=== PATIENT | male | born 1965 | race Caucasian/White ===

== ENCOUNTER 2018-10-15 11:28 | Inpatient (IN) ==
[2018-10-15 12:32] LABS: Baso % (Auto) 0.1 % (0.0-2.0); Eos # (Auto) 0.1 th/mm3 (0.0-0.4); Eos % (Auto) 1.7 % (0.0-4.0); Hematocrit 46.8 % (39.0-51.0); Hemoglobin 16.2 gm/dL (13.0-17.0); Lymph # (Auto) 0.9 th/mm3 (1.0-4.8); Lymph % (Auto) 10.6 % (9.0-44.0); Mean Corpuscular HGB Conc 34.5 % (32.0-36.0); Mean Corpuscular Hemoglobin 31.1 pg (27.0-34.0); Mean Corpuscular Volume 90.2 fL (80.0-100.0); Mean Platelet Volume 7.6 fL (7.0-11.0); Mono % (Auto) 11.8 % (0.0-8.0); Neut # (Auto) 6.4 th/mm3 (1.8-7.7); Neut % (Auto) 75.8 % (16.0-70.0); Platelet Count 188 th/mm3 (150-450); Red Blood Count 5.19 mil/mm3 (4.50-5.90); Red Cell Distribution Width 12.9 % (11.6-17.2); White Blood Count 8.4 th/mm3 (4.0-11.0)
[2018-10-15 12:51] LABS: Albumin 3.5 g/dL (3.4-5.0); Anion Gap 5 meq/L (5-15); Aspartate Aminotransferase 34 U/L (15-37); Blood Urea Nitrogen 11 mg/dL (7-18); Calcium 8.9 mg/dL (8.5-10.1); Chloride 102 meq/L (98-107); Glomerular Filtration Rate 66 mL/min (>89); Glucose,Random 93 mg/dL (74-106); Potassium 4.2 meq/L (3.5-5.1); Sodium 139 meq/L (136-145)
--- NOTE | 2018-10-15 12:53 | XR ---
EXAM DATE: 10/15/2018 12:32 PM EST AGE/SEX: 53 years / Male INDICATIONS: Chest pain. CLINICAL DATA: This is the patient's initial encounter. Patient reports that signs and symptoms have been present for 1 day and indicates a pain score of 4/10. MEDICAL/SURGICAL HISTORY: None. None. COMPARISON: No prior exams available for comparison. FINDINGS: There are minimal atelectatic changes at the left lung base. The lungs are otherwise clear. The heart is normal in size. The bony structures are intact. CONCLUSION: Minimal atelectatic change at the left lung base. Electronically signed by: Jona Phan MD Board Certified Radiologist 10/15/2018 12:51 PM EST
[2018-10-15 12:55] LABS: Alanine Aminotransferase 61 U/L (12-78); Alkaline Phosphatase 110 U/L (45-117); Total Protein 7.4 g/dL (6.4-8.2)
--- NOTE | 2018-10-15 13:13 | US ---
EXAM DATE: 10/15/2018 1:02 PM EST AGE/SEX: 53 years / Male INDICATIONS: Chest pain, prior DVT. CLINICAL DATA: This is the patient's initial encounter. Patient reports that signs and symptoms have been present for 1 day and indicates a pain score of 0/10. MEDICAL/SURGICAL HISTORY: Deep venous thrombosis. . Hernia repair. Vasectomy. COMPARISON: No prior exams available for comparison. TECHNIQUE: Venous ultrasound of both lower extremities was performed from the inguinal ligament to t he proximal calf. Real-time, color Doppler and spectral tracing, compression and augmentation techni ques were used. FINDINGS: Right Leg: There is incomplete compression of the popliteal and peroneal veins along with abnormal i ntraluminal echoes within these vessels. These vessels are expanded characteristic of acute venous th rombosis. The remaining veins of the right lower extremity are patent. Left Leg: There is incomplete compression of the femoral vein, popliteal vein, and calf veins. These vessels also contain abnormal intraluminal echoes with lack of normal blood flow characteristic of a cute occlusive venous thrombosis. The thrombosed femoral vein may be a duplicated vein. Other: None. CONCLUSION: 1. There is acute-appearing venous thrombosis within the right lower extremity within the popliteal and peroneal veins. 2. There is occlusive thrombus within the left lower extremity within the femoral vein, popliteal ve in, and calf veins. Electronically signed by: Edwar Hatch MD Board Certified Radiologist 10/15/2018 1:12 PM EST
--- NOTE | 2018-10-15 13:31 | CT ---
EXAM DATE: 10/15/2018 1:23 PM EST AGE/SEX: 53 years / Male INDICATIONS: Pain left shoulder on inspiration history of DVT recent long drive CLINICAL DATA: This is the patient's initial encounter. Patient reports that signs and symptoms have been present for 1 day and indicates a pain score of 3/10. MEDICAL/SURGICAL HISTORY: Deep venous thrombosis. None. RADIATION DOSE: 10.61 CTDI (mGy) COMPARISON: No prior exams available for comparison. TECHNIQUE: Volumetric scanning was performed using a multi-row detector CT scanner during bolus infu maame of 60 ml Omnipaque 350 (iohexol) nonionic water-soluble contrast as a single exam dose. The teodoro a was post processed with a variety of visualization algorithms including full volume maximum intensi ty projection and sliding thin slab reformation. Using automated exposure control and adjustment of t he mA and/or kV according to patient size, radiation dose was kept as low as reasonably achievable to obtain optimal diagnostic quality images. DICOM format image data is available electronically for r eview and comparison. FINDINGS: Pulmonary Arteries: Filling defects are identified in segmental branches of the left lower lobe pulm onary artery. Additional subsegmental filling defects are seen in the right upper lobe. Lung: Airspace disease is developing in the left lower lobe. Lungs are otherwise clear. Effusion: Small left pleural effusion is noted. Mediastinum: No evidence of mediastinal or hilar adenopathy. Other: The axilla is unremarkable. CONCLUSION: 1. Subsegmental and segmental pulmonary arterial filling defects characteristic of pulmonary emboli as described. 2. Left lower lobe infiltrate 3. Small left pleural effusion 4. No other significant abnormality. Electronically signed by: Edgar Capps MD Board Certified Radiologist 10/15/2018 1:30 PM EST
[2018-10-15] MEDS ORDERED: Heparin 10,000 UNITS/10 ML Vial (for IV use) IV.PUSH STA (13:41)
[2018-10-15 13:53] LABS: Activated Partial Thrombo Time 26.6 sec (23.4-31.7); INR 0.9 Ratio; Prothrombin Time 9.4 sec (9.8-11.6)
[2018-10-15] MEDS ORDERED: Bisacodyl 10 MG Supp RECTAL PRN (14:16)
[2018-10-15] MEDS ORDERED: Acetaminophen 325 MG Tablet PO PRN ×2 (14:16→15:00)
--- NOTE | 2018-10-15 14:43 | P.HPIM ---
History of Present Illness Primary Care Physician: No Primary Care Physician History of Present Illness: 53-year-old white male with a previous history of DVT 18 months ago was taken off Xarelto 7-month ago and may traveled to [place] during the holidays from [place] and stated over the past 2-3 days has had increasing left lower leg discomfort. Overnight, patient developed left-sided chest pain along with shortness of breath worse when he is laying down radiating towards his back. The pain was so bad that it kept him up all night long and therefore came in for evaluation. He reports he has been more inactive over the past few months as he is currently unemployed. He reports dry cough associate with the chest pain. He denies a cardiac history. He denies any palpitations or any worsening lower extremity edema. Inpatient Certification Inpatient Certification: I certify that the inpatient services were ordered in accordance with Medicare regulations governing the order. This includes certification that hospital inpatient services are reasonable and necessary and in the case of services not specified as inpatient-only under 42 CFR 419.22(n), that they are appropriately provided as inpatient services in accordance to with the 2-midnight benchmark under 43 CFR 412.3(e) Estimated Total Length of Stay (Days): 2 Plans for Post Hospital Care: Home Review of Systems Constitutional: Reports as per HPI, Denies chills, Denies fatigue, Denies fever( s) and Denies headache(s) Eyes: Denies blurry vision, Denies change in vision and Denies eye pain Ears, Nose, Mouth, and Throat: Denies abnormal hearing, Denies headache(s), Denies mouth pain, Denies nasal congestion, Denies neck pain and Denies sore throat Cardiovascular: Reports chest pain, Reports chest pain at rest, Reports chest pain with activity, Denies rapid heart rate, Denies pedal edema, Denies palpitations, Reports dyspnea, Reports dyspnea on exertion, Denies orthopnea and Reports paroxysmal nocturnal dyspnea Respiratory: Denies chest congestion, Reports cough, Denies hemoptysis, Reports dyspnea, Reports dyspnea on exertion and Denies wheezing Gastrointestinal: Denies abdominal pain, Denies constipation, Denies loose stools, Denies nausea and Denies vomiting Musculoskeletal: Reports back pain, Denies myalgias, Denies arthralgias, Denies neck pain and Denies numbness Skin/Breast: Denies new lesions and Denies rash Neurologic: Denies abnormal hearing, Denies headache(s), Denies focal weakness, Denies memory loss and Denies numbness Psychiatric: Denies anxiety, Denies depression and Denies memory loss Endocrine: Denies cold intolerance, Denies heat intolerance and Denies palpitations Hematologic/Lymphatic: Denies easy bleeding and Denies easy bruising PMFSH History History Provided By: Patient Medical History Medical History DVT (deep venous thrombosis) (Chronic) Surgical History Surgical History H/O hernia repair (Chronic) H/O vasectomy (Chronic) Family History Family History Mother Lung cancer Father Metastatic adenocarcinoma Social History Social History Substance History: No History of Abuse Smoking Status: Never smoker How Often Do You Have a Drink Containing Alcohol: 2 to 3 times a week Recent Travel in [facility] within the Last 8 Weeks: No Recent Out of Country Travel within the Last 8 Weeks: No Immunization History Tetanus Immunization: >5 Years Medications and Allergies Allergies Allergy/AdvReac Type Severity Reaction Status Date / Time No Known Allergies Allergy Verified 10/15/18 11:50 Home Medications Medication Instructions Recorded Confirmed Type aspirin 81 mg PO DAILY 10/15/18 10/15/18 History Active Medications: Active Medications Acetaminophen (Tylenol) 650 mg PO Q4H PRN PRN Reason: Temp > 100.4 Al Hydroxide/Mg Hydroxide (Milk Of Magnesia Liq) 30 ml PO Q12H PRN PRN Reason: Mild Constipation Bisacodyl (Dulcolax Supp) 10 mg RECTAL DAILY PRN PRN Reason: SEVERE CONSITIPATION Heparin Sodium/Dextrose (Heparin/D5w 25,000 U/250 Ml) 25,000 unit in 250 mls @ 0 mls/hr IV.CONT TITRATE PRN; Protocol PRN Reason: Per Protocol Lactulose (Lactulose Liq) 30 ml PO DAILY PRN PRN Reason: SEVERE CONSITIPATION Ondansetron HCl (Zofran Inj) 4 mg IV.PUSH Q6H PRN PRN Reason: NAUSEA OR VOMITING Sennosides (Senokot) 17.2 mg PO Q12H PRN PRN Reason: Moderate Constipation Sodium Chloride (Ns Flush) 2 ml IV.FLUSH BID SWAPNIL Sodium Chloride (Ns Flush) 2 ml IV.FLUSH UNSCH PRN PRN Reason: FLUSH AFTER USING IV ACCESS Physical Exam Vital signs: Last Vital Signs Temp 98.6 F 10/15/18 11:47 Pulse 85 10/15/18 12:30 Resp 18 10/15/18 12:30 BP 123/76 10/15/18 12:30 Pulse Ox 98 10/15/18 12:30 Intake & Output 10/13/18 10/14/18 10/15/18 10/16/18 06:59 06:59 06:59 06:59 Weight 92.986 kg Narrative: GENERAL: Well-nourished well-developed white male no acute distress SKIN: Warm and dry. HEAD: Atraumatic. Normocephalic. EYES: Pupils equal and round. No scleral icterus. No injection or drainage. ENT: No nasal bleeding or discharge. Mucous membranes pink and moist. NECK: Trachea midline. No JVD. CARDIOVASCULAR: Regular rate and rhythm. Chest pain was not reproducible palpation of chest wall RESPIRATORY: No accessory muscle use. Clear to auscultation. Breath sounds equal bilaterally. GASTROINTESTINAL: Abdomen soft, non-tender, nondistended. Hepatic and splenic margins not palpable. MUSCULOSKELETAL: Extremities without clubbing, cyanosis, trace edema no significant tenderness on palpation of the bilateral calf area, negative Homans sign NEUROLOGICAL: Awake and alert. No obvious cranial nerve deficits. Motor grossly within normal limits. Five out of 5 muscle strength in the arms and legs. Normal speech. PSYCHIATRIC: Appropriate mood and affect; insight and judgment normal. Results Labs CBC & Chem 7: 10/15/18 12:14 10/15/18 12:14 Imaging Impressions Chest CTA 10/15/18 12:08 CONCLUSION: 1. Subsegmental and segmental pulmonary arterial filling defects characteristic of pulmonary emboli as described. 2. Left lower lobe infiltrate 3. Small left pleural effusion 4. No other significant abnormality. Chest X-Ray 10/15/18 12:08 CONCLUSION: Minimal atelectatic change at the left lung base. Venous Doppler Study 10/15/18 12:08 CONCLUSION: 1. There is acute-appearing venous thrombosis within the right lower extremity within the popliteal and peroneal veins. 2. There is occlusive thrombus within the left lower extremity within the femoral vein, popliteal vein, and calf veins. Caprini VTE Risk Assessment Caprini VTE Risk Assessment: Moderate/High Risk (score >= 2) Caprini Risk Assessment Model: Point Value = 1 Point Value = 2 Point Value = 3 Point Value = 5 Age 41-60 Minor surgery BMI > 25 kg/m2 Swollen legs Varicose veins or History of unexplained or recurrent spontaneous Oral contraceptives or hormone replacement Sepsis (< 1 month) Serious lung disease, including pneumonia (< 1 month) Abnormal pulmonary function Acute myocardial infarction Congestive heart failure (< 1 month) History of inflammatory bowel disease Medical patient at bed rest Age 61-74 Arthroscopic surgery Major open surgery (> 45 min) Laparoscopic surgery (> 45 min) Malignancy Confined to bed (> 72 hours) Immobilizing plaster cast Central venous access Age >= 75 History of VTE Family history of VTE Factor V Leiden Prothrombin [id number] Lupus anticoagulant Anticardiolipin antibodies Elevated serum homocysteine Heparin-induced thrombocytopenia Other congenital or acquired thrombophilia Stroke (< 1 month) Elective arthroplasty Hip, pelvis, or leg fracture Acute spinal cord injury (< 1 month) Prophylaxis Regimen: Total Risk Factor Score Risk Level Prophylaxis Regimen 0-1 Low Early ambulation 2 Moderate Order ONE of the following: *Sequential Compression Device (SCD) *Heparin 5000 units SQ BID 3-4 Higher Order ONE of the following medications: *Heparin 5000 units SQ TID *Enoxaparin/Lovenox 40 mg SQ daily (WT < 150 kg, CrCl > 30 mL/min) *Enoxaparin/Lovenox 30 mg SQ daily (WT < 150 kg, CrCl > 10-29 mL/min) *Enoxaparin/Lovenox 30 mg SQ BID (WT < 150 kg, CrCl > 30 mL/min) AND/OR *Sequential Compression Device (SCD) 5 or more Highest Order ONE of the following medications: *Heparin 5000 units SQ TID (Preferred with Epidurals) *Enoxaparin/Lovenox 40 mg SQ daily (WT < 150 kg, CrCl > 30 mL/min) *Enoxaparin/Lovenox 30 mg SQ daily (WT < 150 kg, CrCl > 10-29 mL/min) *Enoxaparin/Lovenox 30 mg SQ BID (WT < 150 kg, CrCl > 30 mL/min) AND *Sequential Compression Device (SCD) Assessment and Plan Plan 53-year-old white male with a previous history of left lower extremity DVT been off of Xarelto for the past 7 months presents with Acute pulmonary embolism-admit for IV heparin, will monitor for hemodynamic stability in the next 24 hours to determine conversion to Xarelto. Continue with pain medication Acute right lower extremity DVT, left lower extremity DVT unknown chronicity continue heparin drip. I discussed with the patient this is a recurrent DVT leading to a PE and patient will need to be on lifetime anticoagulation. He was also counseled to follow-up with his primary care physician for hypercoagulability workup including cancer screening when he returns home to [place]. H&P: Quality VTE Deep Vein Thrombosis/Pulmonary Embolism Present on Admission: Yes
[2018-10-15] MEDS ORDERED: Morphine Inj 4 MG/ML Vial IV.PUSH PRN (15:00)
[2018-10-15] MEDS ORDERED: Naloxone Inj 0.4 MG/ML Vial IV.PUSH PRN (15:00)
[2018-10-15] MEDS: Heparin Drip 25,000 UNIT/250 ML BAG IV.CONT PRN (15:01)
--- NOTE | 2018-10-15 15:23 | ED ---
HPI General Chief complaint: Respiratory Symptoms Stated complaint: Poss Blood Clot Complaint Time Seen by Provider: 10/15/18 11:59 Source: patient and family Limitations: no limitations History of Present Illness HPI narrative: Patient is a 53-year-old male, past medical history significant for 2 previous provoked DVTs while traveling, taken off Xarelto 6 months ago, who presents with complaint of possible blood clot. He states that sometime yesterday he started to have some chest and back discomfort and is having slight dyspnea per his . He denies any leg swelling or pain. He is originally from [place] and recently traveled to [place] and [facility]. He denies cough, fever, chills. He denies abdominal pain, nausea, vomiting. Onset (ago): day(s) Location: chest and back Radiation: non-radiation Severity: moderate Quality: dull Pain Consistency: constant Relieving factors: none Treatments prior to arrival: Reports none Related Data Home Medications Medication Instructions Recorded Confirmed aspirin 81 mg PO DAILY 10/15/18 10/15/18 Allergies Allergy/AdvReac Type Severity Reaction Status Date / Time No Known Allergies Allergy Verified 10/15/18 11:50 Review of Systems ROS: all other systems reviewed are negative Neurologic Denies abnormal hearing, Denies headache(s), Denies focal weakness, Denies memory loss and Denies numbness PMF Medical History Medical History DVT (deep venous thrombosis) (Chronic) Surgical History Surgical History H/O hernia repair (Chronic) H/O vasectomy (Chronic) Family History Family History Mother Lung cancer Father Metastatic adenocarcinoma Social History Social History Substance History: No History of Abuse Smoking Status: Never smoker How Often Do You Have a Drink Containing Alcohol: 2 to 3 times a week Recent Travel in [facility] within the Last 8 Weeks: No Recent Out of Country Travel within the Last 8 Weeks: No Immunization History Tetanus Immunization: >5 Years Exam Narrative Exam Narrative: GENERAL: Well-appearing male in no acute distress, resting comfortably in the room, breathing comfortably on room air. SKIN: Focused skin assessment warm/dry. HEAD: Atraumatic. Normocephalic. EYES: Pupils equal and round. No scleral icterus. No injection or drainage. ENT: No nasal bleeding or discharge. Mucous membranes pink and moist. NECK: Trachea midline. No JVD. CARDIOVASCULAR: Regular rate and rhythm. No murmur appreciated. Intact and equal peripheral pulses. RESPIRATORY: No accessory muscle use. Clear to auscultation. Breath sounds equal bilaterally. GASTROINTESTINAL: Abdomen soft, non-tender, nondistended. Hepatic and splenic margins not palpable. MUSCULOSKELETAL: No obvious deformities. No clubbing. No cyanosis. No lower extremity edema. NEUROLOGICAL: Awake and alert. No obvious cranial nerve deficits. Motor grossly within normal limits. Normal speech. PSYCHIATRIC: Appropriate mood and affect; insight and judgment normal. Course Initial Documented Vital Signs Temperature 98.6 F 10/15/18 11:47 Pulse Rate 88 10/15/18 11:47 Respiratory Rate 20 10/15/18 11:47 Blood Pressure 156/72 H 10/15/18 11:47 Pulse Oximetry 98 10/15/18 11:47 Last Documented Vital Signs Temperature 98.6 F 10/15/18 11:47 Pulse Rate 85 10/15/18 12:30 Respiratory Rate 18 10/15/18 12:30 Blood Pressure 123/76 10/15/18 12:30 Pulse Oximetry 98 10/15/18 12:30 Medical Decision Making MDM Narrative Medical decision making narrative: Patient is a 53-year-old male who presents with complaint of some chest and back discomfort with slight dyspnea. He appears well and is hemodynamically stable. He is not tachycardic and pulse ox is normal. EKG was without acute ischemic changes. Chest x-ray does show some slight atelectasis. Labs are relatively unremarkable. Ultrasound did show bilateral DVTs and CTA is concerning for multiple pulmonary emboli. He has been started on heparin drip and admitted to Dr. Eldridge, hospitalist on-call. Medical Screen Exam Complete: Yes Emergency Medical Condition: Yes Differential Diagnosis Differential Diagnosis: Differential diagnosis includes but is not limited to DVT, PE, acute coronary syndrome, pneumothorax. Medical Records Medical records reviewed: Yes I reviewed the patient's medical records. Lab Data Lab results reviewed: Yes I reviewed the patient's lab results. Result diagrams: 10/15/18 12:14 10/15/18 12:14 Lab Results 10/15/18 10/15/18 10/15/18 Range/Units 12:14 12:14 12:14 WBC 8.4 (4.0-11.0) th/mm3 RBC 5.19 (4.50-5.90) mil/mm3 Hgb 16.2 (13.0-17.0) gm/dL Hct 46.8 (39.0-51.0) % MCV 90.2 (80.0-100.0) fL MCH 31.1 (27.0-34.0) pg MCHC 34.5 (32.0-36.0) % RDW 12.9 (11.6-17.2) % Plt Count 188 (150-450) th/mm3 MPV 7.6 (7.0-11.0) fL Neut % (Auto) 75.8 H (16.0-70.0) % Lymph % (Auto) 10.6 (9.0-44.0) % Haines % (Auto) 11.8 H (0.0-8.0) % Eos % (Auto) 1.7 (0.0-4.0) % Baso % (Auto) 0.1 (0.0-2.0) % Neut # (Auto) 6.4 (1.8-7.7) th/mm3 Lymph # (Auto) 0.9 L (1.0-4.8) th/mm3 Haines # (Auto) 1.0 H (0.0-0.9) th/mm3 Eos # (Auto) 0.1 (0.0-0.4) th/mm3 Baso # (Auto) 0.0 (0.0-0.2) th/mm3 WBC Differential . Differential Comment Auto diff final PT (9.8-11.6) sec INR Ratio APTT (23.4-31.7) sec Sodium 139 (136-145) meq/L Potassium 4.2 (3.5-5.1) meq/L Chloride 102 (98-107) meq/L Carbon Dioxide 32.0 (21.0-32.0) meq/L Anion Gap 5 (5-15) meq/L BUN 11 (7-18) mg/dL Creatinine 1.15 (0.60-1.30) mg/dL Estimated GFR 66 L (>89) mL/min Random Glucose 93 (74-106) mg/dL Calcium 8.9 (8.5-10.1) mg/dL Total Bilirubin 1.4 H (0.2-1.0) mg/dL AST 34 (15-37) U/L ALT 61 (12-78) U/L Alkaline Phosphatase 110 (45-117) U/L Troponin I Less than 0.02 L (0.02-0.05) ng/mL B-Natriuretic Peptide 11 (0-100) pg/mL Total Protein 7.4 (6.4-8.2) g/dL Albumin 3.5 (3.4-5.0) g/dL 10/15/18 Range/Units 13:21 WBC (4.0-11.0) th/mm3 RBC (4.50-5.90) mil/mm3 Hgb (13.0-17.0) gm/dL Hct (39.0-51.0) % MCV (80.0-100.0) fL MCH (27.0-34.0) pg MCHC (32.0-36.0) % RDW (11.6-17.2) % Plt Count (150-450) th/mm3 MPV (7.0-11.0) fL Neut % (Auto) (16.0-70.0) % Lymph % (Auto) (9.0-44.0) % Haines % (Auto) (0.0-8.0) % Eos % (Auto) (0.0-4.0) % Baso % (Auto) (0.0-2.0) % Neut # (Auto) (1.8-7.7) th/mm3 Lymph # (Auto) (1.0-4.8) th/mm3 Haines # (Auto) (0.0-0.9) th/mm3 Eos # (Auto) (0.0-0.4) th/mm3 Baso # (Auto) (0.0-0.2) th/mm3 WBC Differential Differential Comment PT 9.4 L (9.8-11.6) sec INR 0.9 Ratio APTT 26.6 (23.4-31.7) sec Sodium (136-145) meq/L Potassium (3.5-5.1) meq/L Chloride (98-107) meq/L Carbon Dioxide (21.0-32.0) meq/L Anion Gap (5-15) meq/L BUN (7-18) mg/dL Creatinine (0.60-1.30) mg/dL Estimated GFR (>89) mL/min Random Glucose (74-106) mg/dL Calcium (8.5-10.1) mg/dL Total Bilirubin (0.2-1.0) mg/dL AST (15-37) U/L ALT (12-78) U/L Alkaline Phosphatase (45-117) U/L Troponin I (0.02-0.05) ng/mL B-Natriuretic Peptide (0-100) pg/mL Total Protein (6.4-8.2) g/dL Albumin (3.4-5.0) g/dL Imaging Data Attestation: I personally reviewed and interpreted this imaging study as follows : My impression: Atelectasis at the left lung base on x-ray. Radiologist's impression: Chest CTA 10/15/18 12:08 CONCLUSION: 1. Subsegmental and segmental pulmonary arterial filling defects characteristic of pulmonary emboli as described. 2. Left lower lobe infiltrate 3. Small left pleural effusion 4. No other significant abnormality. Chest X-Ray 10/15/18 12:08 CONCLUSION: Minimal atelectatic change at the left lung base. Venous Doppler Study 10/15/18 12:08 CONCLUSION: 1. There is acute-appearing venous thrombosis within the right lower extremity within the popliteal and peroneal veins. 2. There is occlusive thrombus within the left lower extremity within the femoral vein, popliteal vein, and calf veins. ECG Data EKG Prior to Arrival: No Attestation: I personally reviewed and interpreted this ECG as follows: (Sinus rhythm at a rate of [address] or T wave changes.) Discharge Plan Discharge Disposition Patient Disposition: ED Admit(ED Internal Use Only) Discharge Condition Condition: Fair Discharge Order Discharge Orders: ED Use Only Admit Order (Routine); Ordered 10/15/18 Ordered By: Meggan Jasmine Discharge Details Diagnosis: Acute pulmonary embolism, Acute deep vein thrombosis (DVT) Physicians Team ED Provider: Meggan Jasmine Primary Care Provider: Primary Care JimenaiLinda Attending Provider: Jenni Eldridge Discharge Interventions Interventions: Vital Signs Last Done: 10/15/18 11:50 Status ED Status: Admitted Patient
[2018-10-15] MEDS ORDERED: Influenza (Quadrivalent) Vaccine 0.5 ML Syringe IM ONE (19:45)
[2018-10-16 05:01] LABS: Baso % (Auto) 0.2 % (0.0-2.0); Eos % (Auto) 0.6 % (0.0-4.0); Hematocrit 39.8 % (39.0-51.0); Hemoglobin 14.1 gm/dL (13.0-17.0); Lymph # (Auto) 1.1 th/mm3 (1.0-4.8); Lymph % (Auto) 13.3 % (9.0-44.0); Mean Corpuscular HGB Conc 35.3 % (32.0-36.0); Mean Corpuscular Hemoglobin 31.3 pg (27.0-34.0); Mean Corpuscular Volume 88.8 fL (80.0-100.0); Mean Platelet Volume 7.7 fL (7.0-11.0); Mono % (Auto) 11.8 % (0.0-8.0); Neut # (Auto) 6.3 th/mm3 (1.8-7.7); Neut % (Auto) 74.1 % (16.0-70.0); Platelet Count 164 th/mm3 (150-450); Red Blood Count 4.48 mil/mm3 (4.50-5.90); Red Cell Distribution Width 12.9 % (11.6-17.2); White Blood Count 8.5 th/mm3 (4.0-11.0)
[2018-10-16] MEDS: Heparin Drip 25,000 UNIT/250 ML BAG IV.CONT PRN (10:55)
--- NOTE | 2018-10-16 12:16 | P.PNIM ---
Subjective Interval history: Shortness of breath overnight. No hypoxia. The symptoms are from his pulmonary emboli. Physical Exam Vital signs: Last Vital Signs Temp 98.7 F 10/16/18 08:34 Pulse 81 10/16/18 08:34 Resp 18 10/16/18 08:34 BP 106/62 10/16/18 08:34 Pulse Ox 97 10/16/18 08:34 Intake & Output 10/14/18 10/15/18 10/16/18 10/17/18 06:59 06:59 06:59 06:59 Intake Total 960 / 960 Balance 960 / 960 Weight 92.9 kg Narrative: GENERAL: NAD, A&Ox3 HEAD: Normocephalic. NECK: Supple, trachea midline. No lymphadenopathy. EYES: No scleral icterus. No injection or drainage. CARDIOVASCULAR: Regular rate and rhythm without murmurs, gallops, or rubs. RESPIRATORY: Breath sounds equal bilaterally. No accessory muscle use. GASTROINTESTINAL: Abdomen soft, non-tender, nondistended. MUSCULOSKELETAL: No cyanosis, or edema. SKIN: Warm and dry. NEURO: No focal neurological deficits. Results Labs CBC & Chem 7: 10/16/18 04:22 10/15/18 12:14 Imaging Imaging: Impressions Chest CTA 10/15/18 12:08 CONCLUSION: 1. Subsegmental and segmental pulmonary arterial filling defects characteristic of pulmonary emboli as described. 2. Left lower lobe infiltrate 3. Small left pleural effusion 4. No other significant abnormality. Chest X-Ray 10/15/18 12:08 CONCLUSION: Minimal atelectatic change at the left lung base. Venous Doppler Study 10/15/18 12:08 CONCLUSION: 1. There is acute-appearing venous thrombosis within the right lower extremity within the popliteal and peroneal veins. 2. There is occlusive thrombus within the left lower extremity within the femoral vein, popliteal vein, and calf veins. Assessment and Plan Plan 53-year-old white male with a previous history of left lower extremity DVT been off of Xarelto for the past 7 months presents with Acute pulmonary embolism Bilateral DVT Previous history of 2 DVTs Continue IV heparin for now Transition to Eliquis tonight Follow clinically for further improvement Hypercoagulability suspected Hypercoagulable workup initiated DVT prophylaxis Heparin Progress Note: Quality VTE Deep Vein Thrombosis/Pulmonary Embolism Present on Admission: Yes
--- NOTE | 2018-10-16 13:30 | ECG ---
Date Performed: 10/15/2018 Time Performed: 13:23:27 PTAGE: 53 years EKG: Sinus rhythm BORDERLINE LEFT AXIS DEVIATION MODERATE INTRAVENTRICULAR CONDUCTION DELAY BORDERLINE ECG NO PREVIOUS TRACING DOCTOR: Jarett Ayoub Interpretating Date/Time 10/16/2018 13:26:51
[2018-10-17 06:54] LABS: Baso % (Auto) 0.3 % (0.0-2.0); Eos # (Auto) 0.2 th/mm3 (0.0-0.4); Eos % (Auto) 2.1 % (0.0-4.0); Hematocrit 42.3 % (39.0-51.0); Hemoglobin 14.7 gm/dL (13.0-17.0); Lymph # (Auto) 1.1 th/mm3 (1.0-4.8); Mean Corpuscular HGB Conc 34.8 % (32.0-36.0); Mean Corpuscular Hemoglobin 31.4 pg (27.0-34.0); Mean Corpuscular Volume 90.1 fL (80.0-100.0); Mean Platelet Volume 7.7 fL (7.0-11.0); Mono # (Auto) 1.1 th/mm3 (0.0-0.9); Mono % (Auto) 13.3 % (0.0-8.0); Neut % (Auto) 71.3 % (16.0-70.0); Platelet Count 176 th/mm3 (150-450); White Blood Count 8.4 th/mm3 (4.0-11.0)
[2018-10-17 07:23] LABS: Alanine Aminotransferase 50 U/L (12-78); Albumin 2.9 g/dL (3.4-5.0); Alkaline Phosphatase 111 U/L (45-117); Anion Gap 6 meq/L (5-15); Aspartate Aminotransferase 22 U/L (15-37); Blood Urea Nitrogen 8 mg/dL (7-18); Calcium 8.1 mg/dL (8.5-10.1); Carbon Dioxide 30.3 meq/L (21.0-32.0); Chloride 101 meq/L (98-107); Glomerular Filtration Rate 68 mL/min (>89); Glucose,Random 125 mg/dL (74-106); Potassium 3.9 meq/L (3.5-5.1); Sodium 137 meq/L (136-145); Total Protein 6.7 g/dL (6.4-8.2)
[2018-10-17 08:37] VITALS: BP 123/62; PULSE 68; RESP 16; TEMP 97.2; O2SAT 97
--- NOTE | 2018-10-17 10:02 | P.DS ---
DS: Providers Date of admission: 10/15/18 14:19 Primary care physician: No Primary Care Physician Brief History from admission: 53-year-old white male with a previous history of DVT 18 months ago was taken off Xarelto 7-month ago and may traveled to [place] during the holidays from [place] and stated over the past 2-3 days has had increasing left lower leg discomfort. Overnight, patient developed left-sided chest pain along with shortness of breath worse when he is laying down radiating towards his back. The pain was so bad that it kept him up all night long and therefore came in for evaluation. He reports he has been more inactive over the past few months as he is currently unemployed. He reports dry cough associate with the chest pain. He denies a cardiac history. He denies any palpitations or any worsening lower extremity edema. DS: Summary Mr. Gonzalez is a he has a past history of DVT. He came in secondary to bilateral lower extremity DVTs and symptomatic pulmonary M was not. No specified etiology. It is likely he has hypercoagulable syndrome. Blood testing for this has been ordered but is pending. Patient's had resolution of his lower extremity swelling, shortness of breath, and chest pain. He no longer requires oxygen at this point. Medically stable and cleared for discharge home today. He is provided with twice daily Eliquis likely for life. Time Spent with Patient Total time spent providing and/or coordinating discharge services: Quality: VTE Deep Vein Thrombosis/Pulmonary Embolism Present on Admission: Yes Results Labs on day of discharge: Labs from last 24 hours 10/17/18 10/17/18 10/17/18 05:48 05:48 05:48 WBC 8.4 RBC 4.70 Hgb 14.7 Hct 42.3 MCV 90.1 MCH 31.4 MCHC 34.8 RDW 13.0 Plt Count 176 MPV 7.7 Neut % (Auto) 71.3 H Lymph % (Auto) 13.0 Bradford % (Auto) 13.3 H Eos % (Auto) 2.1 Baso % (Auto) 0.3 Neut # (Auto) 6.0 Lymph # (Auto) 1.1 Bradford # (Auto) 1.1 H Eos # (Auto) 0.2 Baso # (Auto) 0.0 WBC Differential . Differential Comment Auto diff final APTT 31.9 H D Lupus Anticoagulant LA PTT Screen dRVVT Screen Protein C Antigen APC Resistance Protein S Activity Antithrombin III Activ Factor V Leiden Mutat Factor V Leiden Interp Factor VIII Activity Sodium 137 Potassium 3.9 Chloride 101 Carbon Dioxide 30.3 Anion Gap 6 BUN 8 Creatinine 1.12 Estimated GFR 68 L Random Glucose 125 H Calcium 8.1 L D Total Bilirubin 1.6 H AST 22 ALT 50 Alkaline Phosphatase 111 Total Protein 6.7 D Albumin 2.9 L D Homocysteine Cardiovas Beta-2-GPI IgG Ab Beta-2-GPI IgA Ab Beta-2-GPI IgM Ab Phosphatidylserine IgG Phosphatidylserine IgA Phosphatidylserine IgM Anti-Cardiolipin IgG Ab Anti-Cardiolipin IgM Ab MTHFR Mutation Detect Prothrombin [id number] Mut 10/16/18 10/16/18 10/16/18 13:23 13:23 10:28 WBC RBC Hgb Hct MCV MCH MCHC RDW Plt Count MPV Neut % (Auto) Lymph % (Auto) Bradford % (Auto) Eos % (Auto) Baso % (Auto) Neut # (Auto) Lymph # (Auto) Bradford # (Auto) Eos # (Auto) Baso # (Auto) WBC Differential Differential Comment APTT 57.2 H Lupus Anticoagulant Pending LA PTT Screen Pending dRVVT Screen Pending Protein C Antigen Pending APC Resistance Pending Protein S Activity Pending Antithrombin III Activ Pending Factor V Leiden Mutat Pending Factor V Leiden Interp Pending Factor VIII Activity Pending Sodium Potassium Chloride Carbon Dioxide Anion Gap BUN Creatinine Estimated GFR Random Glucose Calcium Total Bilirubin AST ALT Alkaline Phosphatase Total Protein Albumin Homocysteine Cardiovas Pending Beta-2-GPI IgG Ab Pending Beta-2-GPI IgA Ab Pending Beta-2-GPI IgM Ab Pending Phosphatidylserine IgG Pending Phosphatidylserine IgA Pending Phosphatidylserine IgM Pending Anti-Cardiolipin IgG Ab Pending Anti-Cardiolipin IgM Ab Pending MTHFR Mutation Detect Pending Prothrombin [id number] Mut Pending Impressions ITS Impressions Chest CTA 10/15/18 12:08 CONCLUSION: 1. Subsegmental and segmental pulmonary arterial filling defects characteristic of pulmonary emboli as described. 2. Left lower lobe infiltrate 3. Small left pleural effusion 4. No other significant abnormality. Chest X-Ray 10/15/18 12:08 CONCLUSION: Minimal atelectatic change at the left lung base. Venous Doppler Study 10/15/18 12:08 CONCLUSION: 1. There is acute-appearing venous thrombosis within the right lower extremity within the popliteal and peroneal veins. 2. There is occlusive thrombus within the left lower extremity within the femoral vein, popliteal vein, and calf veins. Discharge Plan Discharge Disposition Patient Disposition: 01 Discharge Home Discharge Condition Condition: Stable Discharge Order Discharge Orders: Discharge Order (Routine); Ordered 10/17/18 Ordered By: Jona Marcelo Discharge Details Anticipated Discharge Date: 10/17/18 Physicians Team Primary Care Provider: Primary Linda Garrett Attending Provider: Jona Marcelo Rxs /Orders / Referrals /Forms Prescriptions: New apixaban [Eliquis] 5 mg Tablet 5 mg PO BID Qty: 60 RF: 0 Discontinued aspirin 81 mg Tablet,Chewable 81 mg PO DAILY RF: 0 Referrals: Primary Linda Garrett [Primary Care Provider] - See Instructions Status ED Status: Left Department
[2018-10-19 03:50] LABS: Homocysteine (Cardiovascular) 7.9 umol/L (<11.4)
[2018-10-19 09:50] LABS: Dil Russell Viper Venom Conf ( ND (NEGATIVE); Dil Russell Viper Venom Time M ND (CORRECTED); Lupus Anticoagulant PTT Screen 67 seconds (< OR = 40)
[2018-10-20 07:52] LABS: Activated Protein C Resistance 4.2 ratio (> OR = 2.1)
[2018-10-21 13:43] LABS: Factor V Leiden Mutation Negative (Negative); Protein C Antigen 106 % (70-150)
== END 2018-10-17 11:04 | disposition home or self-care (01) | DRG 299 ==
LOC: NEPD 11:28 → NEDA 14:19 → N07 17:13
PROVIDERS: ADMIT Hospitalist; ATTEND Hospitalist
CPT/HCPCS: 71010; 71045; 71275; 80053; 81240; 81241; 81291; 82131; 83090; 83520; 83880; 84484; 85025; 85240; 85300; 85302; 85306; 85307; 85597; 85598; 85610; 85613; 85670; 85730; 86146; 86147; 86148; 90658; 90686; 93005; 93970; 99285; J1644; Q2038; Q9967